=== PATIENT | female | born 1960 | race African-American/Black ===

== ENCOUNTER 2021-11-13 12:03 | Outpatient (CLI) | payer MEDICARE | END 2021-11-13 12:04 | disposition home or self-care (01) | LOC: MADRAD 12:03 | PROVIDERS: ATTEND Family Medicine | DX: M25.561 Pain in right knee (principal); M54.41 Lumbago with sciatica, right side; M17.11 Unilateral primary osteoarthritis, right knee; M47.816 Spondylosis without myelopathy or radiculopathy, lumbar region | CPT/HCPCS: 72100 ==